=== PATIENT | male | born 1975 | race Caucasian/White ===

== ENCOUNTER 2023-08-07 05:17 | Day surgery (SDC) | payer MEDICARE, MEDICAID ==
[~2023-08-07] VITALS: Ht 167.6 cm; Wt 103.0 kg
[~2023-08-07 05:17] MED LIST: AMLO10TA80 PO; ATOR40TA70 PO; CALC0.253 PO; CHOL2000 PO; FERR325T6 PO; HYDR50TA40 PO; METO-385 PO; SITA25TA3 PO
[2023-08-07 06:04] LABS: BASOPHILS % 0.6 % (0.0-2.0); EOSINOPHILS % 4.4 % (0.0-5.0); HEMATOCRIT. 34.8 % (42.0-52.0); HEMOGLOBIN. 11.4 g/dL (14.0-18.0); LYMPHOCYTES % 28.4 % (20.0-50.0); MEAN CORPUSCULAR HEMOGLOBIN 27.1 pg (28.0-32.0); MEAN CORPUSCULAR HGB CONC 32.7 g/dL (31.0-37.0); MEAN CORPUSCULAR VOLUME 82.9 fL (80.0-94.0); MEAN PLATELET VOLUME 7.5 fl (7.4-10.4); MONOCYTES % 5.3 % (2.0-8.0); NEUTROPHILS % 61.3 % (40.0-76.0); PLATELET 146 x1000/uL (130-400); RED CELL DISTRIBUTION WIDTH 17.6 % (11.6-14.6); WHITE BLOOD COUNT 7.6 x1000/uL (4.5-11.0)
[2023-08-07 06:19] LABS: CALCIUM 8.6 mg/dL (8.7-10.4); POTASSIUM 4.8 mEq/L (3.5-5.1)
[2023-08-07 06:35] LABS: CREATININE 5.2 mg/dL (0.6-1.3)
[2023-08-07] MEDS ORDERED: SODIUM CHLORIDE 0.9% 500 ML IV SCH (06:40)
[2023-08-07 06:44] LABS: INR 0.9; PARTIAL THROMBOPLASTIN TIME 25.9 sec (23.4-31.0); PROTHROMBIN TIME 10.4 sec (9.6-11.0)
[2023-08-07] MEDS ORDERED: THROMBIN (BOVINE) 5000 UNITS/VIAL TOP ONE (06:51)
[2023-08-07] MEDS ORDERED: POLYMYXIN B SULFATE 500000 UNITS/VIAL ONE (06:51)
[2023-08-07] MEDS ORDERED: HEPARIN SODIUM 1,000 UNIT/1ML VIAL IV ONE (06:52)
[2023-08-07] MEDS ORDERED: LIDOCAINE HCL 1% 10 MG/ML 10ML VIAL ONE (06:52)
[2023-08-07] MEDS ORDERED: BACITRACIN 14GM TUBE TOP ONE (06:52)
[2023-08-07] MEDS ORDERED: BUPIVACAINE HCL/PF 0.5% (5MG/ML) 10ML ONE (06:52)
[2023-08-07] MEDS ORDERED: PROPOFOL 200MG/20ML VIAL IV ONE ×2 (07:26→09:03)
[2023-08-07] MEDS ORDERED: FENTANYL CITRATE/PF 50MCG/ML 2ML VIAL ONE (07:26)
[2023-08-07] MEDS ORDERED: ONDANSETRON HCL 4MG/2ML INJ ONE (07:26)
[2023-08-07] MEDS ORDERED: DEXAMETHASONE 4MG/ML 1ML VIAL ONE (07:26)
[2023-08-07] MEDS ORDERED: MIDAZOLAM HCL 2 MG/2 ML VIAL ONE (07:26)
[2023-08-07] MEDS ORDERED: MEPERIDINE HCL/PF 25MG/ML CPJ IV PRN ×2 (08:45)
[2023-08-07] MEDS ORDERED: LABETALOL 5MG/ML SYR 20 MG/4 ML SYRINGE IV PRN ×2 (08:45)
[2023-08-07] MEDS ORDERED: ONDANSETRON HCL 4MG/2ML INJ IV PRN (08:45)
[2023-08-07] MEDS ORDERED: HYDROMORPHONE HCL/PF 2MG/ML CPJ IV PRN (08:45)
[2023-08-07 10:16] VITALS: BP 144/69; PULSE 87; RESP 16
[2023-08-07] MEDS: HYDROMORPHONE HCL/PF 2MG/ML CPJ IV PRN (10:16)
[2023-08-07] MEDS: ONDANSETRON HCL 4MG/2ML INJ IV PRN (10:21)
== END 2023-08-07 11:20 | disposition home or self-care (01) ==
LOC: OR 05:17 → EDUNIT# 07:30 → OR 11:20
PROVIDERS: ATTEND Surgery Vascular Surgery
DX: I12.0 Hypertensive chronic kidney disease with stage 5 chronic kidney disease or end stage renal disease (principal); N18.6 End stage renal disease; E11.22 Type 2 diabetes mellitus with diabetic chronic kidney disease; E78.00 Pure hypercholesterolemia, unspecified; Z99.2 Dependence on renal dialysis; Z79.899 Other long term (current) drug therapy; Z98.890 Other specified postprocedural states
CPT/HCPCS: 80048; 85025; 85610; 85730; 36415; 93005; 36832; J3010; J3490 ×4; J1100; J1644; J2250; J2405; J2704; J1170; Z7610 ×29; A4217; J7040; C1768